=== PATIENT | male | born 1970 | race Caucasian/White ===

== ENCOUNTER 2020-08-11 02:49 | Inpatient (IN) | payer SELFPAY ==
[~2020-08-11] VITALS: Ht 165.1 cm; Wt 72.6 kg
[2020-08-11] MEDS ORDERED: ETOMIDATE 2MG/ML 10ML VIAL IV NR (03:30)
[2020-08-11 04:00] LABS: BG BASE EXCESS -4.8 mmol/L (-2.0-2.0); BG CARBOXYHEMOGLOBIN 0.8 % (0.5-1.5); BG DEOXYHEMOGLOBIN 9.5 % (0.0-5.0); BG FRACTION INSPIRED OXYGEN 100; BG HCO3 ACT 17.8 mmol/L (22.0-26.0); BG METHEMOGLOBIN 0.2 % (0.0-1.5); BG OXYGEN SATURATION 90.4 % (92.0-98.5); BG OXYHEMOGLOBIN 89.5 % (94.0-97.0); BG PCO2 26.7 mmHg (35.0-45.0); BG PH 7.442 (7.350-7.450); BG PO2 61.8 mmHg (75.0-100.0); BG SAMPLE SITE RIGHT FEMORAL; BG TOTAL HEMOGLOBIN 13.1 g/dL (12.0-18.0); BG VENT MODE MASK - NRB
[2020-08-11 04:00] LABS: HEMATOCRIT. 38.3 % (42.0-52.0); HEMOGLOBIN. 12.9 g/dL (14.0-18.0); MEAN CORPUSCULAR HEMOGLOBIN 29.3 pg (28.0-32.0); MEAN CORPUSCULAR VOLUME 86.7 fL (80.0-94.0); MEAN PLATELET VOLUME 7.7 fl (7.4-10.4); PLATELET 280 x1000/uL (130-400); RED BLOOD CELL COUNT 4.41 mill/uL (4.7-6.1); RED CELL DISTRIBUTION WIDTH 12.8 % (11.6-14.6)
[2020-08-11] MEDS ORDERED: CEFTRIAXONE 1 G PREMIX 50 ML IV ONE (04:00)
[2020-08-11] MEDS ORDERED: AZITHROMYCIN 500 MG in DEXT 5% WATER 250 ML IV SCH ×2 (04:00→09:00)
[2020-08-11] MEDS ORDERED: SODIUM CHLORIDE 0.9% 3,000 ML IV ONE (04:00)
[2020-08-11 04:34] LABS: CHLORIDE 90 mEq/L (98-107)
[2020-08-11 04:46] LABS: GLUCOSE CSF 61 mg/dL (41-75)
[2020-08-11 04:51] LABS: *AMPHETAMINES SCREEN URINE NEGATIVE (NEGATIVE); *BARBITURATES SCREEN URINE NEGATIVE (NEGATIVE); *BENZODIAZEPINES SCREEN URINE NEGATIVE (NEGATIVE); *COCAINE SCREEN URINE NEGATIVE (NEGATIVE); METHADONE URINE SCREEN NEGATIVE (NEGATIVE)
[2020-08-11 04:52] LABS: CANNABINOID URINE SCREEN NEGATIVE (NEGATIVE); OPIATES URINE SCREEN NEGATIVE (NEGATIVE); PHENCYCLIDINE URINE SCREEN NEGATIVE (NEGATIVE)
[2020-08-11] MEDS ORDERED: KCL 20MEQ/100ML PREMIX 100 ML IV NR ×2 (06:00→08:00)
[2020-08-11 06:33] LABS: PLATELET ESTIMATE NORMAL
[2020-08-11] MEDS ORDERED: MAGNESIUM/ALUMINUM HYDROXIDE/SIMETHICONE 30ML UDC PO PRN (07:15)
[2020-08-11] MEDS ORDERED: ONDANSETRON HCL 4MG/2ML INJ IV PRN (07:15)
[2020-08-11] MEDS ORDERED: ALBUTEROL 6.7GM HFA INHALER ORI PRN (07:15)
[2020-08-11] MEDS ORDERED: GUAIFENESIN 200MG/10ML SUGAR FREE UDC PO PRN (07:15)
[2020-08-11] MEDS ORDERED: ACETAMINOPHEN 325MG TABLET PO PRN ×2 (07:15)
[2020-08-11] MEDS ORDERED: KETOROLAC 15MG/ML VIAL IV PRN (07:15)
[2020-08-11] MEDS ORDERED: NITROGLYCERIN 0.4MG TABLET SL SL PRN (07:15)
[2020-08-11] MEDS ORDERED: CLONIDINE 0.1MG TABLET PO PRN (07:15)
[2020-08-11] MEDS ORDERED: DOCUSATE SODIUM 100MG CAPSULE PO PRN (07:15)
[2020-08-11] MEDS ORDERED: DEXT 5%/0.45% NACL KCL 40MEQ/L 1,000 ML IV SCH ×2 (08:00→18:00)
[2020-08-11] MEDS ORDERED: GUAIFENESIN/DM 600MG/30MG ER TAB 12HR PO SCH (09:00)
[2020-08-11] MEDS ORDERED: ALBUTEROL 6.7GM HFA INHALER ORI SCH (09:00)
[2020-08-11] MEDS ORDERED: NA PHOS,M-B/NA PHOS,DI-BA ENEMA 118ML PR PRN (09:00)
[2020-08-11] MEDS ORDERED: CHOLECALCIFEROL (D3) 1000 UNIT TABLET PO SCH (09:00)
[2020-08-11] MEDS ORDERED: ZINC SULFATE 220 MG ( 50 ) CAPSULE PO SCH (09:00)
[2020-08-11] MEDS ORDERED: ASCORBIC ACID 500 MG TABLET PO SCH (09:00)
[2020-08-11] MEDS ORDERED: ENOXAPARIN 30MG/0.3ML SYR SUBCUT SCH (09:00)
[2020-08-11] MEDS ORDERED: DEXAMETHASONE 10 MG/ML VIAL IV SCH (09:00)
[2020-08-11] MEDS ORDERED: FAMOTIDINE 20MG TABLET PO SCH (09:00)
[2020-08-11 11:30] VITALS: BP 104/76
[2020-08-11 12:00] VITALS: BP 135/76
[2020-08-11 16:00] VITALS: BP 124/74
[2020-08-11] MEDS ORDERED: ZOLPIDEM TARTRATE 5MG TABLET PO PRN (21:00)
[2020-08-12] MEDS ORDERED: CEFTRIAXONE 1,000 MG in DEXTROSE 5% WATER 50 ML IV SCH (04:30)
[2020-08-12 05:32] LABS: *AMPHETAMINES SCREEN URINE NEGATIVE (NEGATIVE); *BARBITURATES SCREEN URINE NEGATIVE (NEGATIVE); *BENZODIAZEPINES SCREEN URINE NEGATIVE (NEGATIVE); *COCAINE SCREEN URINE NEGATIVE (NEGATIVE); METHADONE URINE SCREEN NEGATIVE (NEGATIVE)
[2020-08-12 05:33] LABS: CANNABINOID URINE SCREEN NEGATIVE (NEGATIVE); OPIATES URINE SCREEN NEGATIVE (NEGATIVE); PHENCYCLIDINE URINE SCREEN NEGATIVE (NEGATIVE)
== END 2020-08-12 01:13 | disposition expired | DRG 720 ==
LOC: ER 02:49 → 7EST 06:21 → ENRESERV 10:09 → ER 11:21
PROVIDERS: ADMIT Internal Medicine; ATTEND Internal Medicine
PROC: 009Y3ZZ Drainage of Lumbar Spinal Cord, Percutaneous Approach (ICD-10-PCS; principal; 2020-08-11)
PROC: 5A09357 Assistance with Respiratory Ventilation, Less than 24 Consecutive Hours, Continuous Positive Airway Pressure (ICD-10-PCS; 2020-08-11)
DX: A41.89 Other specified sepsis (principal); R65.20 Severe sepsis without septic shock; U07.1 COVID-19; J12.82 Pneumonia due to coronavirus disease 2019; G92 Toxic encephalopathy; E43 Unspecified severe protein-calorie malnutrition; E83.51 Hypocalcemia; E87.1 Hypo-osmolality and hyponatremia; E87.6 Hypokalemia; E87.2 Acidosis; K72.00 Acute and subacute hepatic failure without coma; J96.01 Acute respiratory failure with hypoxia; Z68.26 Body mass index [BMI] 26.0-26.9, adult
CPT/HCPCS: 36415; 36600; 71045; 80053; 80061; 80305; 80320; 82375; 82438; 82607; 82728; 82746; 82805; 82945; 82962; 83036; 83540; 83550; 83605; 83615; 83735; 84145; 84157; 85025; 85379; 87070; 87449; 93005; 93970; 94660; 99291; C1893; J0456; J0696; J1100; J3480; J3490; J7030; J7060; U0003; G0480